=== PATIENT | female | born 1980 | race Caucasian/White ===

== ENCOUNTER → 2017-11-01 | Outpatient (CLI) | payer OTHER ==
[~2017-11-01] MED LIST: CLON-364 PO; LORC20TA PO; OMEP-110 PO; ONDA4TAB13 SL; OXYC1TAB7 PO; SERT25TA PO; unasom
== END | disposition home or self-care (01) ==
LOC: CFH 07:29
PROVIDERS: ATTEND Thoracic Surgery (Cardiothoracic Vascular Surgery)
DX: K21.9 Gastro-esophageal reflux disease without esophagitis (principal); Z98.84 Bariatric surgery status
CPT/HCPCS: 74241

== ENCOUNTER → 2018-02-19 | Outpatient (CLI) | payer OTHER ==
[~2018-02-19] MED LIST changes: -CLON-364 PO; +CLON0.5T11 PO; +CLON1TAB4 PO; +PREG50CA PO; +SERT50TA PO; +VARE1TAB21 PO
[2018-02-19 16:32] LABS: BASOPHILS # (AUTO) 0.14 x10^3/uL (0-0.1); BASOPHILS % (AUTO) 1 % (0-1); EOSINOPHILS # (AUTO) 0.45 x10^3/uL (0-0.4); EOSINOPHILS % (AUTO) 4 % (1-7); LYMPHOCYTES # (AUTO) 2.81 x10^3/uL (1-3.4); LYMPHOCYTES % (AUTO) 26 % (22-44); MD NO; MEAN CORPUSCULAR HEMOGLOBIN 30.2 pg (27.0-34.8); MEAN CORPUSCULAR HGB CONC 34.3 g/dL (32.4-35.8); MEAN CORPUSCULAR VOLUME 88.1 fL (80-100); MEAN PLATELET VOLUME 8.8 fL (7.4-10.4); MONOCYTES # (AUTO) 0.98 x10^3/uL (0.2-0.8); MONOCYTES % (AUTO) 9 % (2-9); NEUTROPHILS # (AUTO) 6.61 x10^3/uL (1.8-6.8); NEUTROPHILS % (AUTO) 60 % (42-75); PLATELET COUNT 329 x10^3/uL (130-400); RED CELL DISTRIBUTION WIDTH 14.5 % (9.6-15.2)
[2018-02-19 16:38] LABS: ALBUMIN 3.7 g/dL (3.4-5.0); ANION GAP 7 mmol/L (5-15); CALCIUM 8.8 mg/dL (8.5-10.1); CHLORIDE 107 mmol/L (98-107); CREATININE 0.75 mg/dL (0.55-1.02); TOTAL IRON BINDING CAPACITY 309 mcg/dL (250-450)
[2018-02-19 16:51] LABS: % IRON SATURATION 17 % (20-55); ALANINE AMINOTRANSFERASE 44 U/L (12-78); ALKALINE PHOSPHATASE 96 U/L (45-117); BILIRUBIN,TOTAL 0.3 mg/dL (0.2-1.0); FOLATE LEVEL 16.8 ng/mL (3.1-17.5); IRON LEVEL 53 mcg/dL (50-170); PREALBUMIN 23.6 mg/dL (20.0-40.0); TOTAL PROTEIN 7.8 g/dL (6.4-8.2); TRANSFERRIN 239 mg/dL (200-360)
== END | disposition home or self-care (01) ==
LOC: STAR 15:32
PROVIDERS: ATTEND Thoracic Surgery (Cardiothoracic Vascular Surgery)
DX: Z01.818 Encounter for other preprocedural examination (principal); K21.9 Gastro-esophageal reflux disease without esophagitis; Z87.891 Personal history of nicotine dependence
CPT/HCPCS: 36415; 71046; 80053; 82306; 82728; 82746; 83540; 83550; 83970; 84134; 84425; 84466; 85025; 93005

== ENCOUNTER 2018-02-26 06:03 | Inpatient (IN) | payer OTHER ==
[~2018-02-26] VITALS: Ht 160 cm; Wt 104.7 kg
[2018-02-26] MEDS ORDERED: MIDAZOLAM 1 MG/ML, 2ML ONE (06:35)
[2018-02-26] MEDS ORDERED: FENTANYL PF 250 MCG/5ML ONE (06:35)
[2018-02-26] MEDS ORDERED: ONDANSETRON 2MG/ML, 2ML ONE (06:38)
[2018-02-26] MEDS ORDERED: DEXAMETHASONE 4 MG/ML, 1ML ONE ×2 (06:38)
[2018-02-26] MEDS ORDERED: ROCURONIUM 10MG/ML,5ML ONE (06:39)
[2018-02-26] MEDS ORDERED: PROPOFOL 10 MG/ML, 20ML ONE (06:39)
[2018-02-26] MEDS ORDERED: NEOSTIGMINE 1 MG/ML, 10ML ONE (06:40)
[2018-02-26] MEDS ORDERED: GLYCOPYRROLATE 0.4 MG/2 ML, 2ML ONE (06:40)
[2018-02-26] MEDS ORDERED: WATER-INJECTION,STERILE 10 ML IV ONE (06:41)
[2018-02-26] MEDS ORDERED: CEFAZOLIN 1,000 MG ONE ×2 (06:41)
[2018-02-26] MEDS ORDERED: LACTATED RINGERS 1,000 ML IV SCH ×2 (06:47→21:58)
[2018-02-26] MEDS ORDERED: SCOPOLAMINE PATCH, 1.5MG PATCH.TD72 TD ONE ×2 (07:00→07:30)
[2018-02-26] MEDS ORDERED: BUPIVACAINE/PF-EPI 0.5% 1:200K ONE (07:04)
[2018-02-26 07:25] LABS: HCG UR SG 1.022 (1.003-1.030)
[2018-02-26] MEDS ORDERED: ONDANSETRON ODT 8 MG PO PRN (07:30)
[2018-02-26] MEDS ORDERED: ONDANSETRON 2MG/ML, 2ML IV PRN (07:30)
[2018-02-26] MEDS ORDERED: hydrALAzine 20 MG/ML, 1ML IV PRN (07:30)
[2018-02-26] MEDS ORDERED: PROMETHAZINE 12.5 MG SUPP PR PRN ×2 (07:30→09:00)
[2018-02-26] MEDS ORDERED: OXYcodone 5 MG/5 ML ORAL.SOL UDC PO PRN (07:30)
[2018-02-26] MEDS ORDERED: MEPERIDINE/PF 25MG/0.5ML IVPush PRN (07:30)
[2018-02-26] MEDS ORDERED: PROMETHAZINE 25 MG/ML, 1ML IV PRN (07:30)
[2018-02-26] MEDS ORDERED: LABETALOL 5MG/ML, 20ML IV PRN (07:30)
[2018-02-26] MEDS ORDERED: PROMETHAZINE 25 MG SUPP PR PRN (07:30)
[2018-02-26] MEDS ORDERED: ACETAMINOPHEN 100 ML IVPB ONE (07:30)
[2018-02-26 07:44] LABS: CHOL/HDL RATIO 3.5; LDL/HDL RATIO 1.8 (0.5-3.0)
[2018-02-26] MEDS ORDERED: FENTANYL PF 100 MCG/2ML ONE ×2 (08:34→09:06)
[2018-02-26] MEDS ORDERED: ONDANSETRON 2MG/ML, 2ML IVPush PRN (09:00)
[2018-02-26] MEDS ORDERED: PHENOL THROAT SPRAY BOTTLE MM PRN (09:00)
[2018-02-26] MEDS ORDERED: PROMETHAZINE 25 MG/ML, 1ML IM PRN (09:00)
[2018-02-26] MEDS ORDERED: ENALAPRILAT 1.25 MG/ML, 2ML IV PRN (09:00)
[2018-02-26] MEDS ORDERED: DIPHENHYDRAMINE 50 MG/ML, 1ML IV PRN (09:00)
[2018-02-26] MEDS ORDERED: LORazepam 2 MG/ML, 1ML IV PRN (09:00)
[2018-02-26] MEDS ORDERED: hydrALAzine 20 MG/ML, 1ML IVPush PRN (09:00)
[2018-02-26] MEDS: FENTANYL PF 100 MCG/2ML IV PRN ×2 (09:08→09:13)
[2018-02-26] MEDS ORDERED: HYDROmorphone 2 MG/ML, 1ML ONE ×3 (09:23→22:11)
[2018-02-26] MEDS: HYDROmorphone 1 MG/ML, 1ML IV PRN ×5 (09:25→22:18)
[2018-02-26] MEDS ORDERED: LABETALOL 5MG/ML, 20ML ONE (09:27)
[2018-02-26] MEDS: LACTATED RINGERS 1,000 ML IV SCH ×2 (11:44→18:33)
[2018-02-26] MEDS: FAMOTIDINE 20 MG/2 ML IVPush SCH ×2 (11:44→21:36)
[2018-02-26 12:50] VITALS: BP 119/80
[2018-02-26] MEDS: ONDANSETRON ODT 4 MG PO PRN ×2 (13:19→18:33)
[2018-02-26] MEDS: ACETAMINOPHEN 1,000 MG/100 ML IV IV SCH ×2 (15:19→23:43)
[2018-02-26] MEDS: CEFAZOLIN PMX 2GM/50ML 50 ML IVPB SCH ×2 (16:45→23:43)
[2018-02-26] MEDS ORDERED: HYDROcodone/APAP 7.5-325MG/15ML UDC PO PRN (17:00)
[2018-02-26 20:45] VITALS: BP 121/64
[2018-02-27] VITALS: BP 118/74
[2018-02-27 04:00] VITALS: BP 135/82
[2018-02-27] MEDS ORDERED: HYDROmorphone 2 MG/ML, 1ML ONE (04:55)
[2018-02-27] MEDS: ONDANSETRON ODT 4 MG PO PRN (04:56)
[2018-02-27] MEDS: HYDROmorphone 1 MG/ML, 1ML IV PRN (04:57)
[2018-02-27 06:42] LABS: ANION GAP 5 mmol/L (5-15); CALCIUM 8.7 mg/dL (8.5-10.1); CHLORIDE 107 mmol/L (98-107); CREATININE 0.71 mg/dL (0.55-1.02)
[2018-02-27] MEDS: CEFAZOLIN PMX 2GM/50ML 50 ML IVPB SCH (07:12)
[2018-02-27 07:25] LABS: BASOPHILS # (AUTO) 0.07 x10^3/uL (0-0.1); BASOPHILS % (AUTO) 1 % (0-1); EOSINOPHILS # (AUTO) 0.05 x10^3/uL (0-0.4); EOSINOPHILS % (AUTO) 0 % (1-7); LYMPHOCYTES % (AUTO) 9 % (22-44); MD NO; MEAN CORPUSCULAR HEMOGLOBIN 29.8 pg (27.0-34.8); MEAN CORPUSCULAR HGB CONC 33.4 g/dL (32.4-35.8); MEAN CORPUSCULAR VOLUME 89.3 fL (80-100); MEAN PLATELET VOLUME 8.6 fL (7.4-10.4); MONOCYTES # (AUTO) 1.35 x10^3/uL (0.2-0.8); MONOCYTES % (AUTO) 8 % (2-9); NEUTROPHILS # (AUTO) 13.14 x10^3/uL (1.8-6.8); NEUTROPHILS % (AUTO) 82 % (42-75); PLATELET COUNT 350 x10^3/uL (130-400); RED BLOOD COUNT 4.25 x10^6/uL (3.82-5.3); RED CELL DISTRIBUTION WIDTH 14.6 % (9.6-15.2)
[2018-02-27 08:00] VITALS: BP 128/79
[2018-02-27] MEDS ORDERED: KETOROLAC 30 MG/1 ML IM SCH (08:00)
[2018-02-27] MEDS: FAMOTIDINE 20 MG/2 ML IVPush SCH (08:32)
[2018-02-27] MEDS: KETOROLAC 30 MG/1 ML IV SCH ×2 (08:32→14:24)
[2018-02-27 13:19] VITALS: BP 132/75
[2018-02-27] MEDS ORDERED: HYDR15SO3 PO (15:22)
[2018-02-28] MEDS ORDERED: FAMOTIDINE 20 MG TABLET PO SCH (09:00)
== END 2018-02-27 15:45 | disposition home or self-care (01) | DRG 621 ==
LOC: ORIP 06:03 → 4NOR 10:17
PROVIDERS: ADMIT Thoracic Surgery (Cardiothoracic Vascular Surgery); ATTEND Thoracic Surgery (Cardiothoracic Vascular Surgery)
PROC: 0DB64Z3 Excision of Stomach, Percutaneous Endoscopic Approach, Vertical (ICD-10-PCS; principal; 2018-02-26 07:30)
DX: E66.01 Morbid (severe) obesity due to excess calories (principal); Z68.41 Body mass index [BMI] 40.0-44.9, adult; J45.909 Unspecified asthma, uncomplicated; K21.9 Gastro-esophageal reflux disease without esophagitis; G89.29 Other chronic pain; M54.9 Dorsalgia, unspecified; N39.46 Mixed incontinence; F41.9 Anxiety disorder, unspecified; G47.00 Insomnia, unspecified; M79.7 Fibromyalgia; R53.81 Other malaise; G25.81 Restless legs syndrome; N92.6 Irregular menstruation, unspecified; F32.9 Major depressive disorder, single episode, unspecified; Z85.41 Personal history of malignant neoplasm of cervix uteri; Z98.891 History of uterine scar from previous surgery; Z88.8 Allergy status to other drugs, medicaments and biological substances; Z91.048 Other nonmedicinal substance allergy status; Z88.5 Allergy status to narcotic agent; Z83.3 Family history of diabetes mellitus; Z82.0 Family history of epilepsy and other diseases of the nervous system; Z80.9 Family history of malignant neoplasm, unspecified; Z82.49 Family history of ischemic heart disease and other diseases of the circulatory system
CPT/HCPCS: 36415; S0028; 80048; 80061; 81025; 82040; 85025; J0131; J0690; J1100; J1170; J1885; J2250; J2405; J2550; J2704; J2710; J3010; Q0162; J2060; J7120

== ENCOUNTER → 2018-03-21 | Outpatient (CLI) | payer OTHER ==
[~2018-03-21] MED LIST changes: +HYDR15SO3 PO
== END | disposition home or self-care (01) ==
LOC: CFH 09:07
PROVIDERS: ATTEND Obstetrics & Gynecology
DX: Z12.31 Encounter for screening mammogram for malignant neoplasm of breast (principal)
CPT/HCPCS: 77067

== ENCOUNTER → 2019-10-28 | Outpatient (CLI) | payer OTHER ==
[~2019-10-28] MED LIST changes: +CLON-364 PO; -CLON0.5T11 PO; +CLON1TAB11 PO; -CLON1TAB4 PO
== END | disposition home or self-care (01) ==
LOC: CFH 06:43
PROVIDERS: ATTEND Physician Assistant
DX: N92.0 Excessive and frequent menstruation with regular cycle (principal); N94.6 Dysmenorrhea, unspecified
CPT/HCPCS: 76830

== ENCOUNTER → 2020-04-15 | Outpatient (CLI) | payer OTHER | END | disposition home or self-care (01) | LOC: CFH 08:03 | PROVIDERS: ATTEND Obstetrics & Gynecology | DX: Z12.31 Encounter for screening mammogram for malignant neoplasm of breast (principal) | CPT/HCPCS: 77063; 77067 ==